=== PATIENT | female | born 1970 | race African-American/Black ===

== ENCOUNTER 2022-07-19 19:17 | Emergency (ER) | payer OTHER ==
[~2022-07-19] VITALS: Ht 165.1 cm; Wt 94.0 kg
[2022-07-19 19:29] VITALS: BP 165/91
[2022-07-19 21:25] VITALS: BP 165/91
== END 2022-07-19 21:25 | disposition home or self-care (01) | DRG 563 ==
LOC: ED 19:17
DX: S93.402A Sprain of unspecified ligament of left ankle, initial encounter (principal); X50.1XXA Overexertion from prolonged static or awkward postures, initial encounter